=== PATIENT | male | born 1935 | race Caucasian/White ===

== ENCOUNTER 2016-07-07 05:16 | Inpatient (IN) | payer OTHER, BC ==
[2016-06-15 13:19] VITALS: BMI 24.0
--- NOTE | 2016-06-15 13:50 | PAT Medication Instructions ---
Service Date Jun 15, 2016. Current Home Medication List Acetaminophen Tab (Tylenol), 325 MG PO BID Amlodipine (Norvasc), 10 MG PO QAM Donepezil Hydrochloride (Donepezil Hcl), 1 TAB PO QAM Eye Drops (Eye Drops), 1 DROP OPB HS Gabapentin (Neurontin), 300 MG PO BID Gabapentin (Neurontin), 400 MG PO HS Glimepiride (Glimepiride), 1 TAB PO QID Hydrochlorothiazide (Hctz), 25 MG PO QAM Lisinopril (Zestril), 20 MG PO BID Metformin Hcl (Glucophage), 850 MG PO TID Multivitamin (Multivitamin), 1 TAB PO QPM Simvastatin (Zocor), 10 MG PO HS Sitagliptin Phosphate (Januvia), 100 MG PO QPM Medication Instructions For Your Scheduled Surgery - Hold the following medications 48 hours prior to surgery: Metformin Hcl (Glucophage), 850 MG PO TID - Hold the following medications the morning of surgery: Glimepiride (Glimepiride), 1 TAB PO QID Hydrochlorothiazide (Hctz), 25 MG PO QAM Lisinopril (Zestril), 20 MG PO BID Donepezil Hydrochloride (Donepezil Hcl), 1 TAB PO QAM - Take the following medications the morning of surgery with a sip of water: Gabapentin (Neurontin), 300 MG PO BID Acetaminophen Tab (Tylenol), 325 MG PO BID Amlodipine (Norvasc), 10 MG PO QAM - Hold the following medications as scheduled the night before surgery: Lisinopril (Zestril), 20 MG PO BID - Take the following medications as scheduled the night before surgery: Gabapentin (Neurontin), 400 MG PO HS Gabapentin (Neurontin), 300 MG PO BID Eye Drops (Eye Drops), 1 DROP OPB HS Simvastatin (Zocor), 10 MG PO HS Multivitamin (Multivitamin), 1 TAB PO QPM Acetaminophen Tab (Tylenol), 325 MG PO BID Sitagliptin Phosphate (Januvia), 100 MG PO QPM If you have any questions please call us at [phone] (Daniela Schulz PA-C) or [phone] or [phone]
[2016-06-15 14:48] LABS: URINE APPEARANCE CLEAR (CLEAR); URINE BILIRUBIN NEG (NEG); URINE COLOR YELLOW; URINE NITRITE NEG (NEG); URINE SPECIFIC GRAVITY 1.013 (1.000-1.030); UROBILINOGEN NEG (NEG); ZZUR CULT IF INDIC CLEAN CATCH NO
[2016-06-15 14:49] LABS: BASO % 0.5 %; BASO ABS # 0.04 K/uL (0-0.2); COMPLETE YES; EOS % 1.6 %; HEMATOCRIT 39.2 % (42-52); IG% 0.3 %; LYMPH % 20.5 %; LYMPH ABS # 1.58 K/uL (1.2-3.4); MEAN CELL VOLUME 90.1 fL (80-100); MEAN CORPUSCULAR HEMOGLOBIN 31.5 pg (25-34); MEAN CORPUSCULAR HGB CONC 34.9 g/dl (32-36); MEAN PLATELET VOLUME 10.4 fL (7.4-10.4); MONO % 6.9 %; NEUT % 70.2 %; PLATELET COUNT 174 K/uL (130-400); RED BLOOD COUNT 4.35 M/uL (4.7-6.1); WHITE BLOOD COUNT 7.69 K/uL (4.8-10.8)
[2016-06-15 14:50] LABS: MANUAL MICROSCOPIC REQUIRED? NO; REVIEW REQ? NO
[2016-06-15 15:03] LABS: ESTIMATED AVERAGE GLUCOSE 194 mg/dl; HA1C FLAG Normal (Normal)
[2016-06-15 15:16] LABS: BUN/CREATININE RATIO 14.2 (10-20); CALCIUM 10.3 mg/dl (8.5-10.1); CREATININE 1.2 mg/dl (0.60-1.40); POTASSIUM 4.6 mmol/L (3.5-5.1)
--- NOTE | 2016-07-06 19:20 | HISTORY & PHYSICAL EXAMINATION ---
DATE OF ADMISSION: 07/07/2016 CHIEF COMPLAINT: Chronic right shoulder pain. HISTORY OF PRESENT ILLNESS: This is a 81-year-old male patient of Dr. Bhatia complaining of chronic right shoulder pain, longstanding, now progressively getting worse. 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 The patient wished to proceed with a right total shoulder arthroplasty. PAST MEDICAL HISTORY: Hypertension, hypercholesterolemia, normal sinus bradycardia, carpal tunnel syndrome, diabetes mellitus, rheumatoid arthritis, spine problems, sciatica. SOCIAL HISTORY: Nonsmoker, nondrinker. PAST SURGICAL HISTORY: Right total hip, both carpal tunnel releases, and appendectomy. FAMILY HISTORY: Noncontributory. REVIEW OF SYSTEMS: The patient complains of chronic right shoulder pain. Otherwise, denies any shortness of breath, chest pain, nausea, vomiting or any other joint complaints. MEDICATIONS: Amlodipine 10 mg daily; simvastatin 10 mg daily; Januvia 100 mg daily; metformin 850 mg t.i.d.; lisinopril 20 mg b.i.d.; hydrochlorothiazide 25 mg daily; donepezil 5 mg daily; glimepiride 2 mg 1 tablet at breakfast, 1 tablet at lunch, 1 tablet at supper; latanoprost 0.005% eyedrops, instill 1 drop daily in both eyes; calcium 600 plus vitamin D daily. ALLERGIES: No known drug allergies. PHYSICAL EXAMINATION: GENERAL: Well-developed, well-nourished 81-year-old male in no acute distress. He is alert and oriented x3 and pleasant. HEENT: Normocephalic, atraumatic. Extraocular motions are intact. Pupils are equal and reactive to light. HEART: Regular rate and rhythm. No murmurs are appreciated. LUNGS: Clear. ABDOMEN: Soft, nontender, bowel sounds are present. EXTREMITIES: Right shoulder reveals full range of motion with crepitation and pain. He has 4/5 strength globally. NEUROLOGIC: Neurovascularly he is intact in his right upper extremity. DIAGNOSES: Right shoulder end-stage osteoarthritis with a history of hypertension, hypercholesterolemia, normal sinus bradycardia, carpal tunnel syndrome, diabetes mellitus, rheumatoid arthritis, spine problems, sciatica. PLAN: The patient was advised of his diagnosis. Indications, risks, benefits, and postop course have all been reviewed. The patient wishes to proceed with a right total shoulder arthroplasty. Necessary consent forms, preoperative testing and clearances will be obtained. LAURENCED
[~2016-07-07] VITALS: Ht 177.8 cm; Wt 74.0 kg
[2016-07-07] VITALS (7 sets, daily range): BP systolic 112–151; BP diastolic 50–78; PULSE 46–100; TEMP 36.3–36.8; O2SAT 97–100; Ht 177.8 cm; Wt 74.0 kg
[~2016-07-07 05:16] MED LIST: ACET325T96 PO; AMLO-114 PO; DONE1TAB11 PO; EYED OPB; GABA-113 PO; GABA1CAP5 PO; GLIM2TAB2 PO; HYDR25TA4 PO; LISI-725 PO; METF-383 PO; MULT-506 PO; SIMV10TA2 PO; SITA100T3 PO
[2016-07-07] MEDS ORDERED: CeleBREX 200 MG CAP PO SCH (06:00)
[2016-07-07] MEDS ORDERED: FAMOTIDINE 20 MG TAB PO SCH (06:00)
[2016-07-07] MEDS ORDERED: DEXAMETHASONE 4 MG TAB PO SCH (06:00)
[2016-07-07] MEDS ORDERED: METOCLOPRAMIDE HCL 10 MG TAB PO SCH (06:00)
[2016-07-07] MEDS ORDERED: ACETAMINOPHEN 500 MG TAB PO SCH (06:00)
[2016-07-07] MEDS ORDERED: LACTATED RINGER'S 1000ML 1,000 ML IV SCH (06:00)
[2016-07-07] MEDS ORDERED: GABAPENTIN 300 MG CAP PO SCH (06:00)
[2016-07-07] MEDS ORDERED: CEFAZOLIN 1000MG/55 ML D5W 55 ML IV SCH (06:00)
[2016-07-07] MEDS ORDERED: LACTATED RINGER'S 1000ML IV SCH (06:00)
[2016-07-07] MEDS ORDERED: BUPIVACAINE 0.5 % 5 MG/1 ML PF 10ML VIAL ONE (06:25)
[2016-07-07] MEDS ORDERED: MEPIVACAINE HCL 1.5% 30 ML VIAL ONE (06:26)
[2016-07-07] MEDS ORDERED: MIDAZOLAM HCL 1 MG/ML 2ML VIAL ONE (06:41)
[2016-07-07] MEDS ORDERED: FENTANYL CITRATE INJ 50 MCG/1 ML 2 ML VIAL ONE (06:41)
--- NOTE | 2016-07-07 07:16 | History & Physical Bridge Note ---
H&P Re-Evaluation Bridge Note: I have examined the patient, reviewed the History & Physical and in the interval since the performance of the History & Physical I have noted the following changes of clinical significance: No changes noted
[2016-07-07] MEDS ORDERED: ONDANSETRON INJ 2 MG/ML 2 ML VIAL ONE ×2 (08:05→10:09)
[2016-07-07] MEDS ORDERED: EpHEDrine SULFATE 50MG/5ML SYR ONE (08:05)
[2016-07-07] MEDS ORDERED: DEXAMETHASONE SOD INJ 4 MG/ML VIAL ONE (08:05)
[2016-07-07] MEDS ORDERED: PHENYLEPHRINE 100MCG/ML 5ML SYR ONE (08:05)
[2016-07-07] MEDS ORDERED: LIDOCAINE HCL 2% 2 ML VIAL (20MG/ML) ONE (08:05)
[2016-07-07] MEDS ORDERED: PHENYLEPHRINE HCL INJ 10 MG/ML VIAL ONE (08:05)
[2016-07-07] MEDS ORDERED: PROPOFOL IV EMULSION 10 MG/ML 20 ML VIAL IV ONE (08:05)
[2016-07-07] MEDS ORDERED: GLYCOPYRROLATE INJ 0.2 MG/ML VIAL ONE (08:05)
[2016-07-07] MEDS ORDERED: SUCCINYLCHOLINE 100MG/5ML SYR IV ONE (08:05)
[2016-07-07] MEDS ORDERED: NEOSTIGMINE METHYLSULFATE 5 MG/5 ML SYR ONE (08:05)
[2016-07-07] MEDS ORDERED: ROCURONIUM BROMIDE 10 MG/ML 5 ML VIAL ONE ×2 (08:06→08:35)
[2016-07-07] MEDS ORDERED: BACITRACIN 50000 UNIT VIAL IR ONE (09:50)
--- NOTE | 2016-07-07 10:17 | [facility] Operative Report ---
Operative Report Operative Date Jul 07, 2016. Pre-Operative Diagnosis Right Shoulder Degenerative Joint Disease Post-Operative Diagnosis same biceps tenosynovitis Procedure(s) Performed right total shoulder replacement and biceps tenodesis and debridement partial rotator cuff tear Surgeon Dr. Ishaan Wallace Gas Producer Surgeon(s) Luis Asif PA-C Estimated Blood Loss 50ml Findings as above bicipital groove spurs Specimens A.) Right Humeral Head Drains 2 HV Anesthesia GENERAL AND REGIONAL Complication(s) None Disposition Recovery Room / PACU Indications end stage djd I attest to the content of the Intraoperative Record and any orders documented therein. Any exceptions are noted below.
[2016-07-07] MEDS ORDERED: MoRPHine SULFATE 2 MG/ML CARP IV PRN ×3 (10:30→12:45)
[2016-07-07] MEDS ORDERED: NALOXONE HCL 0.4 MG/1 ML VIAL/CARP IV PRN (10:30)
[2016-07-07] MEDS ORDERED: ZOLPIDEM TARTRATE 5 MG TAB PO PRN (10:30)
[2016-07-07] MEDS ORDERED: MAGNESIUM HYDROXIDE SUSP 30 ML UDC PO PRN (10:30)
[2016-07-07] MEDS ORDERED: BISACODYL 10 MG SUPP PR PRN (10:30)
[2016-07-07] MEDS ORDERED: SOD PHOSPHATE/SOD BIPHOSPHATE ENEMA 132 ML BTL PR PRN (10:30)
[2016-07-07] MEDS ORDERED: ONDANSETRON INJ 2 MG/ML 2 ML VIAL IV PRN (10:30)
[2016-07-07] MEDS ORDERED: NovoLIN-R INSULIN PER UNIT CHARGE ONE (10:40)
[2016-07-07] MEDS ORDERED: INSULIN HUMAN REGULAR PER UNIT 15 UNITS in SYRINGE 0 ML IV STA (11:25)
[2016-07-07] MEDS ORDERED: EpHEDrine SULFATE INJ 50 MG/ML AMP IV PRN (11:30)
[2016-07-07] MEDS ORDERED: ATROPINE SULFATE 0.1 MG/ML 5ML SYR IV PRN (11:30)
--- NOTE | 2016-07-07 11:47 | Anesthesiology Progress Note ---
Anesthesia Post Op Note Date & Time Jul 07, 2016 at 11:47 Vital Signs Pain Intensity: 0 Vital Signs Past 12 Hours Date Time Temp Pulse Resp B/P Pulse Ox O2 Delivery O2 Flow Rate FiO2 07/07/16 11:30 77 14 113/55 99 Nasal Cannula 4 07/07/16 11:20 36.4 76 14 106/52 99 Nasal Cannula 4 07/07/16 11:10 76 14 111/56 100 Mask 5 07/07/16 11:00 75 14 113/54 100 Mask 5 07/07/16 10:50 75 14 133/57 100 Mask 10 07/07/16 10:40 70 14 129/62 100 Mask 10 07/07/16 10:30 69 14 128/61 99 Mask 10 07/07/16 10:28 36.2 74 12 128/64 100 Mask 10 07/07/16 05:53 36.5 52 18 151/70 99 Room Air Notes Mental Status: alert / awake / arousable, participated in evaluation Pt Amnestic to Procedure: Yes Nausea / Vomiting: adequately controlled Pain: adequately controlled Airway Patency, RR, SpO2: stable & adequate BP & HR: stable & adequate Hydration State: stable & adequate Anesthetic Complications: no major complications apparent
--- NOTE | 2016-07-07 11:51 | DIAGNOSTIC IMAGING REPORT ---
RIGHT SHOULDER MIN 2 VIEWS ROUTINE CLINICAL HISTORY: Post shoulder surgery Right COMPARISON STUDY: None. FINDINGS: The patient is status post a right shoulder arthroplasty. Hardware appears intact. Skin geronimo and surgical drains are in place. No fracture or dislocation. IMPRESSION: Status post right shoulder arthroplasty. No evidence for hardware complication. Electronically signed by: Torsten Hi M.D. 07/07/2016 11:49 AM Dictated Date/Time: 07/07/2016 11:48 AM
--- NOTE | 2016-07-07 12:26 | OPERATIVE REPORT ---
DATE OF OPERATION: 07/07/2016 INDICATION FOR PROCEDURE: The patient is a 81-year-old male with progressive osteoarthritis in his right shoulder. His radiographs demonstrate [id number] in the glenohumeral joint. He also has some mild to moderate AC joint arthritis but asymptomatic in that area. His MRI demonstrates some rotator cuff tendinopathy, but essentially intact rotator cuff with no evidence of any full thickness rotator cuff tear. PREOPERATIVE DIAGNOSIS: End-stage osteoarthritis right shoulder, rotator cuff tendinopathy. POSTOPERATIVE DIAGNOSIS: Same with partial tear and calcification anterior rotator cuff with biceps tenosynovitis chronic, bicipital groove bone spurs. PROCEDURE: Right shoulder total shoulder replacement with biceps tenodesis. SURGEON: Dr. Wallace. MANAGER UNDERWRITING: Luis Asif PA-C. ANESTHESIA: Regional block general. OPERATION AND FINDINGS: OPERATIVE PROCEDURE: The patient was taken to the operating room, anesthetized regional block and general anesthetic. He was positioned on the operating room table in a 30 degree beach chair position with a towel roll on the medial border of his right scapula. He was translated to the right side of the bed so his shoulder could be manipulated off the bed as necessary. His head was placed on a foam headrest. She had protective eyewear placed. Templeton catheter placed. He had TEDs and SCDs placed. His right shoulder was sterilely prepped and draped with ChloraPrep. Exam under anesthesia demonstrated he had about 140 degrees of forward elevation, 90 degrees of abduction and external rotation to 35 degrees to 40 degrees only. Clearly had [id number] crepitation in the glenohumeral joint. An anterior deltopectoral approach was performed. A longitudinal incision was made in the deltopectoral interval. Skin was incised through a thin layer of fat. Subcutaneous bleeders were cauterized. The cephalic vein was dissected out and retracted laterally with the deltoid. Deltopectoral interval was divided down to the conjoined tendon. The upper centimeter of the pectoralis was released for inferior exposure. The biceps tendon sheath opened up and he had chronic tenosynovitis there and bicipital groove bone spurs. The biceps was tenodesed to the pectoralis using interrupted [id number] #2 Fiberwire sutures and released proximally. The clavipectoral fascia was divided at the lateral margin of the strap muscles and extended up to the CA ligament which was preserved. The bursa of the rotator cuff was resected. He had a thin bursitis. No major chronic thickened bursitis was identified. The rotator cuff outer surface was completely intact. The circumflex vessels were tied off with silk ties and divided laterally. The muscle fibers of the subscapularis was split at its inferior edge just at the level of the circumflex vessels leaving a small cuff of tissue to protect the axillary nerve. A Kitner elevator was used to reflect these muscle fibers off the inferior capsule and a blunt Hohmann retractor was placed to protect the underlying axillary nerve which was palpated with a tug test. The rotator interval was opened up and then the subscapularis tendon was taken down with an incision perpendicular to the fibers leaving about a cm of the tendon attached to the lesser tuberosity. A traction suture was placed into the subscapularis and capsular tissue. Then the capsule was released under direct visualization down to the glenoid, released off the anterior glenoid and the superior capsule released down to the glenoid, so we had a 360 degree release of the subscapularis. The Bankart retractor was placed anteriorly. The Fukuda retractor was placed into the joint to expose the intraarticular findings which demonstrated [id number] with some relatively more posterior wear of the glenoid with removal of articular cartilage still present in about the anterior third of the joint, but with exposed bone at the posterior two-thirds. There was no major eccentric erosion noted more minor. There was a fairly large subchondral cyst in the anterior mid glenoid. The glenoid labrum had degenerative changes and the labrum was resected circumferentially on the rim of the biceps tendon was resected superiorly. Then the anterior inferior, posterior inferior capsule was released with electrocautery on bone, axillary nerve protected inferiorly with retractor and a Matt elevator was used to help free up some of the capsule off the glenoid. At this point, the humerus was dislocated with extension and external rotation. I did remove the small to moderate inferior humeral osteophytes. The humeral head was exposed with extension and external rotation of retractors and the cut was made with freehand cut technique to match the patient's normal version. We did identify when we were taking down the subscapularis tendon some calcifications in the upper edge of the subscapularis rotator interval area. These calcifications were debrided from the tendon tissue. There was also some undersurface tearing of the supraspinatus that was debrided with a rongeur back to intact fibers which was more easily identified after the humeral head cut was made. There was no evidence of any high grade full thickness tear and we felt that we could do a standard shoulder replacement. The humerus was then retracted posterior to the glenoid and the drill hole was made into the central glenoid for the reamer which was subsequently used. We slightly reamed eccentrically anteriorly to make eversion anatomic and then sized this for 48 mm glenoid and then went ahead and drilled a central hole for the peg guide, drilled the 3 peg holes, irrigated this copiously. We packed the drill holes with epinephrine soaked tampons and sponge and then went ahead and vacuum mixed the Palacos G cement. Then the 48 Affinity glenoid from the [employer]ornier system was used. The Affinity CortiLoc peg glenoid size 48 was then cemented with the peripheral peg cemented and the central peg pressfit. The implant held in position until the cement cured and then we went ahead to prepare the humerus which was repaired with a starter awl followed by sequential broaches up to a size 4, which had the best fit and fill and then broached up to a size 4 as well. That was an A angle and then we went ahead with the high offset 48 mm humeral head and reduced this to the glenoid. There was complete stability with an inferior shuck, posterior shuck, external rotation and soft tissue tension on subscapularis was good. Trials were removed. The final components were assembled for the 4A standard Aequalis Ascend Flex stem assembled to the Flex shoulder system Aequalis humeral head, which was the 48 x 18 mm high offset head. Then 3 drill holes were made through the hard bone in the bicipital groove, 3 transosseous #5 FiberWire sutures were passed around the lesser tuberosity and then after irrigation copiously with antibiotic solution and bacitracin the humeral implant was impacted into position, reduced to the glenoid and then the subscapularis was repaired with the #5 FiberWire sutures previously placed with Miguel Ángel-Ranjith suture technique and then the lateral row soft tissue fixation performed with [id number] #2 FiberWire. Rotator interval was closed maximal rotation with the #2 FiberWire. The pectoralis was repaired with [id number] #2 FiberWire reinforcing the tenodesis. The range of motion was assessed and patient had about 45-50 degrees of external rotation, 90 degrees of abduction and 150 degrees of forward elevation without any tension on the repair. The wound was irrigated. Two drains were placed. The deltopectoral interval was closed with [id number]-vi-[id number] #1 Vicryl sutures, subcutaneous tissue closed with interrupted 2-0 Polysorb. Skin closed with geronimo. Sterile dressings were applied and the patient tolerated the procedure well. Luis Asif PA-C was my facilities assistant. He functioned as facilities assistant for the entire procedure. He assisted in patient positioning, assisted in soft tissue retraction, instrument management during the procedure and he performed the subcutaneous skin closure and will participate in postoperative care of the patient. I attest to the content of the Intraoperative Record and any orders documented therein. Any exceptio ns are noted below.
--- NOTE | 2016-07-07 12:42 | Medical Consult ---
Consultation Date of Consultation: Jul 07, 2016. Attending Physician: Ishaan Wallace M.D. Reason for Consultation: Medical management History of Present Illness Patient is a pleasant 81 y/o male, with PMHx of HTN, hypercholesterolemia, bradycardia, and DM, s/p total right shoulder arthroplasty by Dr. Wallace on 07/07. Patient states he is feeling well. Pain is currently a 3/10. Just arrived to room prior to my arrival. Per , surgery went well. Patient denies any nausea or vomiting. Has not ate yet since surgery. No BM/passing gas postop. Patient denies any fever, chills, sweats, lightheadedness, dizziness, vision changes, CP, palpitations, edema, SOB, wheezing, cough, abdominal pain, nausea, vomiting, diarrhea, urinary symptoms, melena, weakness, anxiety/depression, active bleeding, or new skin discoloration/changes. Past Medical/Surgical History 1. HTN 2. Hypercholesterolemia 3. Bradycardia 4. DM 5. Neuropathy 6. Mild cognitive disorder Family History Father- [place] in late 50's Brother- Cardiac issues Sister- Cancer Social History Smoking Status: Never Smoker Marital Status: Housing Status: lives with family Occupation Status: employed Allergies Coded Allergies: No Known Allergies (Unverified , 07/07/16) Home Medications Reported Home Medications Medications Dose Route/Sig Max Daily Dose Days Date Category Dose Instructions Eye Drops (Miscellaneous) Drp 1 Drop OPB HS 06/15/16 Reported PT NOT SURE OF NAME Neurontin (Gabapentin) 400 Mg Cap 400 Mg PO HS 06/15/16 Reported Tylenol (Acetaminophen) 325 Mg Tab 325 Mg PO BID 06/15/16 Reported Zocor (Simvastatin) 10 Mg Tab 10 Mg PO HS 06/15/16 Reported Glucophage (Metformin Hcl) 850 Mg Tab 850 Mg PO TID 06/15/16 Reported Zestril (Lisinopril) 20 Mg Tab 20 Mg PO BID 06/15/16 Reported Januvia (Sitagliptin Phosphate) 100 Mg Tab 100 Mg PO QPM 06/15/16 Reported Hctz (Hydrochlorothiazide) 25 Mg Tab 25 Mg PO QAM 06/15/16 Reported Glimepiride 2 Mg Tab 1 Tab PO QID 90 06/15/16 Reported Neurontin (Gabapentin) 300 Mg Cap 300 Mg PO BID 06/15/16 Reported Donepezil Hcl (Donepezil Hydrochloride) 5 Mg Tab 1 Tab PO QAM 90 06/15/16 Reported Multivitamin (Multivitamins) Tab 1 Tab PO QPM 06/15/16 Reported Norvasc (Amlodipine Besylate) 10 Mg Tab 10 Mg PO QAM 06/15/16 Reported Current Inpatient Medications Current Inpatient Medications Medications (Trade) Dose Ordered Sig/Patricio Route Start Time Stop Time Status Last Admin Dose Admin Lactated Ringer's 1,000 ml @ 60 mls/hr [id number] IV 07/07/16 06:00 07/07/16 22:39 Cefazolin Sodium (Ancef 1000mg/55 ml D5W) 55 ml @ 100 mls/hr PREOP IV 07/07/16 06:00 07/07/16 18:00 07/07/16 07:27 100 MLS/HR Acetaminophen (Tylenol Tab) 1,000 mg PREOP PO 07/07/16 06:00 07/07/16 18:00 07/07/16 05:50 1,000 MG Celecoxib (CeleBREX CAP) 200 mg PREOP PO 07/07/16 06:00 07/07/16 18:00 07/07/16 05:50 200 MG Dexamethasone (Decadron Tab) 8 mg PREOP PO 07/07/16 06:00 07/07/16 18:00 07/07/16 05:49 8 MG Famotidine (Pepcid Tab) 20 mg PREOP PO 07/07/16 06:00 07/07/16 18:00 07/07/16 05:48 20 MG Gabapentin (Neurontin Cap) 300 mg PREOP PO 07/07/16 06:00 07/07/16 18:00 Metoclopramide HCl 10 mg 10 mg PREOP PO 07/07/16 06:00 07/07/16 18:00 07/07/16 05:49 10 MG Lactated Ringer's (Lr 1000ml) 1,000 ml @ 15 mls/hr Q24H IV 07/07/16 06:00 07/08/16 05:59 Amlodipine Besylate (Norvasc Tab) 10 mg QAM PO 07/08/16 09:00 08/07/16 08:59 Donepezil HCl (Aricept Tab) 5 mg QAM PO 07/08/16 09:00 08/07/16 08:59 Gabapentin (Neurontin Cap) 300 mg BID PO 07/07/16 21:00 08/06/16 20:59 Gabapentin (Neurontin Cap) 400 mg HS PO 07/07/16 21:00 08/06/16 20:59 Hydrochlorothiazide (Hydrochlorothiazide Tab) 25 mg QAM PO 07/08/16 09:00 08/07/16 08:59 Lisinopril (Zestril Tab) 20 mg BID PO 07/07/16 21:00 08/06/16 20:59 Simvastatin (Zocor Tab) 10 mg HS PO 07/07/16 21:00 08/06/16 20:59 Non-Formulary Medication (Eye Drops ) 1 drop HS OPB 07/07/16 21:00 08/06/16 20:59 UNV Diphenhydramine HCl (Benadryl Cap) 25 mg Q8 PRN PO 07/07/16 10:30 08/06/16 10:29 Zolpidem Tartrate (Ambien Tab) 5 mg HSZ PRN PO 07/07/16 10:30 08/06/16 10:29 Ondansetron HCl (Zofran Inj) 4 mg Q6H PRN IV 07/07/16 10:30 08/06/16 10:29 Pantoprazole Sodium 40 mg 40 mg QAM PO 07/08/16 09:00 08/07/16 08:59 Potassium Chloride/Sodium Chloride (KCl Inj/Nss 1000ml) 1,005 ml @ 100 mls/hr Q10H3M IV 07/07/16 13:00 07/08/16 11:00 Oxycodone HCl (Roxicodone Immediate Rel Tab) `1-2 TABS FOR PAIN `1 TAB... Q4H PRN PO 07/07/16 10:30 07/21/16 10:29 Oxycodone HCl (Oxycontin Tab) 10 mg Q12 PO 07/07/16 21:00 07/21/16 20:59 Acetaminophen (Tylenol Tab) 1,000 mg Q8 PO 07/07/16 14:00 08/06/16 13:59 Morphine Sulfate (MoRPHine SULFATE INJ) as above Q2H PRN IV 07/07/16 10:30 07/21/16 10:29 UNV Naloxone HCl (Narcan Inj) 0.1 mg Q2M PRN IV 07/07/16 10:30 08/06/16 10:29 UNV Magnesium Hydroxide (Milk Of Magnesia Susp) 30 ml Q6H PRN PO 07/07/16 10:30 08/06/16 10:29 Bisacodyl (Dulcolax Supp) 10 mg DAILY PRN CA 07/07/16 10:30 08/06/16 10:29 Sodium Biphosphate/ Sodium Phosphate (Fleet Enema) 132 ml DAILY PRN CA 07/07/16 10:30 08/06/16 10:29 Multivitamins 1 tab 1 tab DAILY PO 07/08/16 09:00 08/07/16 08:59 Cefazolin Sodium/ Dextrose (Ancef Iv/D5 50ml) 55 ml @ 100 mls/hr Q8H IV 07/07/16 10:30 07/07/16 19:02 UNV Insulin Aspart (novoLOG ASPART) SLIDING SCALE G... ACHS SC 07/07/16 17:15 08/06/16 17:14 Ephedrine Sulfate (EpHEDrine SULFATE INJ) 5 mg Q5M PRN IV 07/07/16 11:30 07/07/16 16:30 Atropine Sulfate (Atropine Sulfate 0.1MG/Ml Inj) 0.5 mg Q1M PRN IV 07/07/16 11:30 07/07/16 16:30 Physical Exam Date Time Temp Pulse Resp B/P Pulse Ox O2 Delivery O2 Flow Rate FiO2 07/07/16 12:27 36.8 63 17 112/63 100 Nasal Cannula 3.0 07/07/16 11:53 72 14 101/54 100 Nasal Cannula 4 07/07/16 11:45 72 14 99/52 100 Nasal Cannula 4 07/07/16 11:30 77 14 113/55 99 Nasal Cannula 4 07/07/16 11:20 36.4 76 14 106/52 99 Nasal Cannula 4 07/07/16 11:10 76 14 111/56 100 Mask 5 07/07/16 11:00 75 14 113/54 100 Mask 5 07/07/16 10:50 75 14 133/57 100 Mask 10 07/07/16 10:40 70 14 129/62 100 Mask 10 07/07/16 10:30 69 14 128/61 99 Mask 10 07/07/16 10:28 36.2 74 12 128/64 100 Mask 10 07/07/16 05:53 36.5 52 18 151/70 99 Room Air General Appearance: WD/WN, no apparent distress Head: normocephalic, atraumatic Eyes: normal inspection, PERRL ENT: hearing grossly normal Neck: supple Respiratory/Chest: lungs clear, no respiratory distress, no accessory muscle use Cardiovascular: regular rate, rhythm, normal peripheral pulses Abdomen/GI: normal bowel sounds, non tender, soft Extremities/Musculoskelatal: no pedal edema, + pertinent finding (SCDs/TEDs on. Right shoulder- brace on with clean dressing. ) Neurologic/Psych: alert, normal mood/affect, oriented x 3 Skin: normal color, warm/dry, no rash Laboratory Results Last 24 Hours Test 07/07/16 05:31 07/07/16 10:34 07/07/16 10:58 07/07/16 11:17 Bedside Glucose 135 mg/dl 267 mg/dl 272 mg/dl 226 mg/dl Assessment & Plan 81 y/o male, with PMHx of HTN, hypercholesterolemia, bradycardia, and DM, s/p total right shoulder arthroplasty by Dr. Wallace on 07/07. - DVT prophylaxis, pain management, and PT/OT as per primary team - Follow CBC and BMP HTN: - Hold Lisinopril 20 mg PO BID and HCTZ 25 mg PO QAM- check AM labs for kidney function postop prior to restarting - Continue Amlodopine 10 mg PO daily - Add Hydralazine 10 mg IV PRN for SBP >170 or DBP >100 DM: - Hold Metformin, Januvia, and Glimepiride - BSG ACHS with sliding insulin scale - No orders for IV steroids, monitor need for Lantus coverage Neuropathy: - Continue Gabapentin Hypercholesterolemia: - Continue Zocor 10 mg PO daily Mild cognitive disorder: - Continue Aricept DVT prophylaxis: - As per primary team Code Status: - LEVEL I, FULL Dispo: - Discharge as per primary team. Thank you for this consultation. We will continue to follow throughout hospital stay.
[2016-07-07] MEDS: POTASSIUM CHLORIDE INJ 10 MEQ in SODIUM CHLORIDE 0.9% 1000ML 1,000 ML IV SCH ×2 (12:44→23:52)
[2016-07-07] MEDS ORDERED: DEXTROSE 50% 50 ML SYR IV PRN (12:45)
[2016-07-07] MEDS ORDERED: HydrALAZINE HCL 20 MG/ML VIAL IV. PRN (12:45)
[2016-07-07] MEDS ORDERED: MoRPHine SULFATE 4 MG/ML 1 ML CARP\\VIAL IV PRN (12:45)
[2016-07-07] MEDS ORDERED: GLUCAGON FOR INJ 1 MG VIAL SQ PRN (12:45)
[2016-07-07] MEDS ORDERED: GLUCOSE 10 TABS/TUBE PO PRN (12:45)
[2016-07-07] MEDS ORDERED: GLUCOSE 40% GEL 15 GM TUBE PO PRN (12:45)
[2016-07-07] MEDS ORDERED: [UNRECOGNIZED DRUG - OTHER] SCH (14:00)
[2016-07-07] MEDS: CEFAZOLIN IV 1,000 MG in DEXTROSE 5% 50ML 50 ML IV SCH ×2 (14:27→21:32)
[2016-07-07] MEDS: ACETAMINOPHEN 500 MG TAB PO SCH ×2 (14:28→21:32)
[2016-07-07] MEDS ORDERED: NURSING VERBAL MED ORDER ONE (14:30)
[2016-07-07] MEDS ORDERED: LATA0.5S OP (14:37)
[2016-07-07] MEDS: INSULIN ASPART 100 UNITS/ML 3 ML PEN SC SCH ×2 (18:20→21:37)
[2016-07-07] MEDS ORDERED: LISINOPRIL 20 MG TAB PO SCH (21:00)
[2016-07-07] MEDS: OXYCODONE HCL 10 MG TABCR (OXYCONTIN) PO SCH (21:29)
[2016-07-07] MEDS: LATANOPROST 0.005% OP SOLN 2.5 ML BTL OP SCH (21:30)
[2016-07-07] MEDS: GABAPENTIN 300 MG CAP PO SCH (21:31)
[2016-07-07] MEDS: GABAPENTIN 400 MG CAP PO SCH (21:31)
[2016-07-07] MEDS: SIMVASTATIN 10 MG TAB PO SCH (21:31)
[2016-07-08] VITALS (7 sets, daily range): BP systolic 127–183; BP diastolic 50–68; PULSE 42–62; TEMP 36.4–36.9; O2SAT 94–100
[2016-07-08] MEDS: OXYCODONE HCL IR 5 MG TAB (IMMEDIATE RELEASE) PO PRN ×2 (03:02→15:50)
[2016-07-08] MEDS: ACETAMINOPHEN 500 MG TAB PO SCH ×3 (05:36→21:39)
[2016-07-08 06:52] LABS: HEMATOCRIT 32.4 % (42-52); MEAN CELL VOLUME 89.3 fL (80-100); MEAN CORPUSCULAR HEMOGLOBIN 30.9 pg (25-34); MEAN CORPUSCULAR HGB CONC 34.6 g/dl (32-36); PLATELET COUNT 170 K/uL (130-400); RED BLOOD COUNT 3.63 M/uL (4.7-6.1); WHITE BLOOD COUNT 14.46 K/uL (4.8-10.8)
[2016-07-08 07:22] LABS: BUN/CREATININE RATIO 15.3 (10-20); CALCIUM 9.4 mg/dl (8.5-10.1); CREATININE 1.6 mg/dl (0.60-1.40); POTASSIUM 4.8 mmol/L (3.5-5.1)
--- NOTE | 2016-07-08 07:32 | Hospitalist Progress Note ---
Hospitalist Progress Note Date of Service Jul 08, 2016. Subjective Pt evaluation today including: conversation w/ patient, physical exam, chart review, lab review, review of inpatient medication list Voiding: no voiding problems, no incontinence Patient states he is feeling well. His pain is well controlled. He is eating and drinking OK. Denies any passing gas/BM postop. Patient denies any fever, chills, sweats, lightheadedness, dizziness, vision changes, CP, palpitations, edema, SOB, wheezing, cough, abdominal pain, nausea, vomiting, diarrhea, urinary symptoms, melena, numbness/tingling, weakness, anxiety/depression, active bleeding, or new skin discoloration/changes. Medications Current Inpatient Medications Medications (Trade) Dose Ordered Sig/Patricio Route Start Time Stop Time Status Last Admin Dose Admin Amlodipine Besylate (Norvasc Tab) 10 mg QAM PO 07/08/16 09:00 08/07/16 08:59 07/08/16 08:09 10 MG Donepezil HCl (Aricept Tab) 5 mg QAM PO 07/08/16 09:00 08/07/16 08:59 07/08/16 08:09 5 MG Gabapentin (Neurontin Cap) 300 mg BID PO 07/07/16 21:00 08/06/16 20:59 07/08/16 08:09 300 MG Gabapentin (Neurontin Cap) 400 mg HS PO 07/07/16 21:00 08/06/16 20:59 07/07/16 21:31 400 MG Simvastatin (Zocor Tab) 10 mg HS PO 07/07/16 21:00 08/06/16 20:59 07/07/16 21:31 10 MG Diphenhydramine HCl (Benadryl Cap) 25 mg Q8 PRN PO 07/07/16 10:30 08/06/16 10:29 Zolpidem Tartrate (Ambien Tab) 5 mg HSZ PRN PO 07/07/16 10:30 08/06/16 10:29 Ondansetron HCl (Zofran Inj) 4 mg Q6H PRN IV 07/07/16 10:30 08/06/16 10:29 Pantoprazole Sodium (Protonix Tab) 40 mg QAM PO 07/08/16 09:00 08/07/16 08:59 07/08/16 08:09 40 MG Oxycodone HCl (Roxicodone Immediate Rel Tab) `1-2 TABS FOR PAIN `1 TAB... Q4H PRN PO 07/07/16 10:30 07/21/16 10:29 07/08/16 03:02 5 MG Oxycodone HCl (Oxycontin Tab) 10 mg Q12 PO 07/07/16 21:00 07/21/16 20:59 07/08/16 08:08 10 MG Acetaminophen (Tylenol Tab) 1,000 mg Q8 PO 07/07/16 14:00 08/06/16 13:59 07/08/16 05:36 1,000 MG Naloxone HCl (Narcan Inj) 0.1 mg Q2M PRN IV 07/07/16 10:30 08/06/16 10:29 Magnesium Hydroxide (Milk Of Magnesia Susp) 30 ml Q6H PRN PO 07/07/16 10:30 08/06/16 10:29 Bisacodyl (Dulcolax Supp) 10 mg DAILY PRN MD 07/07/16 10:30 08/06/16 10:29 Sodium Biphosphate/ Sodium Phosphate (Fleet Enema) 132 ml DAILY PRN MD 07/07/16 10:30 08/06/16 10:29 Multivitamins (Multivitamin Tab) 1 tab DAILY PO 07/08/16 09:00 08/07/16 08:59 07/08/16 08:10 1 TAB Insulin Aspart (novoLOG ASPART) SLIDING SCALE G... ACHS SC 07/07/16 17:15 08/06/16 17:14 07/08/16 08:49 10 UNITS Morphine Sulfate (MoRPHine SULFATE INJ) 2 mg Q2H PRN IV 07/07/16 12:45 07/21/16 12:44 Morphine Sulfate (MoRPHine SULFATE INJ) 4 mg Q2H PRN IV 07/07/16 12:45 07/21/16 12:44 Glucose (Glucose 40% Gel) 15-30 GRAMS 15 GRAMS... UD PRN PO 07/07/16 12:45 08/06/16 12:44 Glucose (Glucose Chew Tab) 4-8 Tablets 4 Tabl... UD PRN PO 07/07/16 12:45 08/06/16 12:44 Dextrose (Dextrose 50% 50ML Syringe) 25-50ML OF 50% DW IV FOR... UD PRN IV 07/07/16 12:45 08/06/16 12:44 Glucagon (Glucagon Inj) 1 mg UD PRN SQ 07/07/16 12:45 08/06/16 12:44 Hydralazine HCl (HydrALAZINE INJ) 10 mg Q6 PRN IV. 07/07/16 12:45 08/06/16 12:44 Latanoprost 1 drops 1 drops HS OP 07/07/16 21:00 08/06/16 20:59 07/07/16 21:30 1 DROPS Sodium Chloride (Nss 1000ml) 1,000 ml @ 125 mls/hr Q8H IV 07/08/16 07:30 08/07/16 07:29 07/08/16 08:10 125 MLS/HR Objective Vital Signs Date Time Temp Pulse Resp B/P Pulse Ox O2 Delivery O2 Flow Rate FiO2 07/08/16 02:55 36.5 51 17 131/61 99 Room Air 07/07/16 23:50 Room Air 07/07/16 23:13 36.4 46 17 119/50 100 Room Air 07/07/16 19:45 Room Air 07/07/16 15:11 36.4 59 17 142/62 100 Nasal Cannula 3.0 07/07/16 14:15 36.3 59 17 131/70 100 Nasal Cannula 3.0 07/07/16 13:05 36.7 100 17 147/78 100 Nasal Cannula 3.0 07/07/16 12:45 Room Air 07/07/16 12:27 36.8 63 17 112/63 100 Nasal Cannula 3.0 07/07/16 12:00 97 Nasal Cannula 3.0 07/07/16 11:53 72 14 101/54 100 Nasal Cannula 4 07/07/16 11:45 72 14 99/52 100 Nasal Cannula 4 07/07/16 11:30 77 14 113/55 99 Nasal Cannula 4 07/07/16 11:20 36.4 76 14 106/52 99 Nasal Cannula 4 07/07/16 11:10 76 14 111/56 100 Mask 5 07/07/16 11:00 75 14 113/54 100 Mask 5 07/07/16 10:50 75 14 133/57 100 Mask 10 07/07/16 10:40 70 14 129/62 100 Mask 10 07/07/16 10:30 69 14 128/61 99 Mask 10 07/07/16 10:28 36.2 74 12 128/64 100 Mask 10 Physical Exam General Appearance: no apparent distress, + pertinent finding (Shoulder brace on ) Eyes: normal inspection, PERRL ENT: hearing grossly normal Neck: supple Respiratory/Chest: lungs clear, no respiratory distress, no accessory muscle use Cardiovascular: regular rate, rhythm Abdomen: normal bowel sounds, non tender, soft Extremities: non-tender, no pedal edema, no calf tenderness Neurologic/Psychiatric: alert, normal mood/affect, oriented x 3 Skin: normal color, warm/dry, no rash Laboratory Results Last 24 Hours Test 07/07/16 10:34 07/07/16 10:58 07/07/16 11:17 07/07/16 17:29 Bedside Glucose 267 mg/dl 272 mg/dl 226 mg/dl 269 mg/dl Test 07/07/16 20:47 07/08/16 05:38 Bedside Glucose 296 mg/dl White Blood Count 14.46 K/uL Red Blood Count 3.63 M/uL Hemoglobin 11.2 g/dL Hematocrit 32.4 % Mean Corpuscular Volume 89.3 fL Mean Corpuscular Hemoglobin 30.9 pg Mean Corpuscular Hemoglobin Concent 34.6 g/dl RDW Standard Deviation 43.0 fL RDW Coefficient of Variation 13.2 % Platelet Count 170 K/uL Mean Platelet Volume 11.0 fL Sodium Level 135 mmol/L Potassium Level 4.8 mmol/L Chloride Level 102 mmol/L Carbon Dioxide Level 21 mmol/L Anion Gap 12.0 mmol/L Blood Urea Nitrogen 25 mg/dl Creatinine 1.60 mg/dl Est Creatinine Clear Calc Drug Dose 38.7 ml/min Estimated GFR () 46.8 Estimated GFR (Non- 40.4 BUN/Creatinine Ratio 15.3 Random Glucose 242 mg/dl Calcium Level 9.4 mg/dl Assessment and Plan 81 y/o male, with PMHx of HTN, hypercholesterolemia, bradycardia, and DM, s/p total right shoulder arthroplasty by Dr. Wallace on 07/07. - DVT prophylaxis, pain management, and PT/OT as per primary team - Follow CBC and BMP -- Leukocytosis, likely secondary to postop response/Decedron pretreatment preop. Continue to monitor, follow for s/s of infection. -- Hyponatremia/acute kidney injury- treat with IV NSS @ 125 ml/hr. BUN/Cr= 25/1.60. Baseline Cr. ~1.2. Continue to follow. HTN: - Hold Lisinopril 20 mg PO BID and HCTZ 25 mg PO QAM - Continue Amlodipine 10 mg PO daily - Add Hydralazine 10 mg IV PRN for SBP >170 or DBP >100 DM: - Hold Metformin, Januvia, and Glimepiride - BSG ACHS with sliding insulin scale - No orders for IV steroids, monitor need for Lantus coverage Neuropathy: - Continue Gabapentin Hypercholesterolemia: - Continue Zocor 10 mg PO daily Mild cognitive disorder: - Continue Aricept DVT prophylaxis: - As per primary team Code Status: - LEVEL I, FULL Dispo: - Discharge as per primary team. Thank you for this consultation. We will continue to follow throughout hospital stay.
[2016-07-08] MEDS: OXYCODONE HCL 10 MG TABCR (OXYCONTIN) PO SCH ×2 (08:08→21:11)
[2016-07-08] MEDS: AMLODIPINE BESYLATE 5 MG TAB PO SCH (08:09)
[2016-07-08] MEDS: PANTOprazole SOD 40 MG TAB PO SCH (08:09)
[2016-07-08] MEDS: DONEPEZIL HCL 5 MG TAB PO SCH (08:09)
[2016-07-08] MEDS: GABAPENTIN 300 MG CAP PO SCH ×2 (08:09→21:10)
[2016-07-08] MEDS: MULTIVITAMIN TAB PO SCH (08:10)
[2016-07-08] MEDS: SODIUM CHLORIDE 0.9% 1000ML 1,000 ML IV SCH ×2 (08:10→15:44)
[2016-07-08] MEDS: INSULIN ASPART 100 UNITS/ML 3 ML PEN SC SCH ×4 (08:49→21:13)
--- NOTE | 2016-07-08 08:52 | Orthopedic Progress Note ---
Orthopedic Progress Note Date of Service Jul 08, 2016. Subjective Post OP Day: 1 Reports: feeling well, pain controlled w PO medications, Denies: SOB, calf pain , chest pain, complaints, light headedness, nausea / vomiting Additional Notes: HR in 40's- low 50's, this is baseline. Objective calves soft nontender, N/V intact, capillary refill less than 2 sec., dressing C /D/I, A&O x3, toes mobile Date Time Temp Pulse Resp B/P Pulse Ox O2 Delivery O2 Flow Rate FiO2 07/08/16 08:37 45 148/65 07/08/16 07:30 36.9 50 16 183/50 98 Room Air 07/08/16 02:55 36.5 51 17 131/61 99 Room Air 07/07/16 23:50 Room Air 07/07/16 23:13 36.4 46 17 119/50 100 Room Air 07/07/16 19:45 Room Air 07/07/16 15:11 36.4 59 17 142/62 100 Nasal Cannula 3.0 07/07/16 14:15 36.3 59 17 131/70 100 Nasal Cannula 3.0 07/07/16 13:05 36.7 100 17 147/78 100 Nasal Cannula 3.0 07/07/16 12:45 Room Air 07/07/16 12:27 36.8 63 17 112/63 100 Nasal Cannula 3.0 07/07/16 12:00 97 Nasal Cannula 3.0 07/07/16 11:53 72 14 101/54 100 Nasal Cannula 4 07/07/16 11:45 72 14 99/52 100 Nasal Cannula 4 07/07/16 11:30 77 14 113/55 99 Nasal Cannula 4 07/07/16 11:20 36.4 76 14 106/52 99 Nasal Cannula 4 07/07/16 11:10 76 14 111/56 100 Mask 5 07/07/16 11:00 75 14 113/54 100 Mask 5 07/07/16 10:50 75 14 133/57 100 Mask 10 07/07/16 10:40 70 14 129/62 100 Mask 10 07/07/16 10:30 69 14 128/61 99 Mask 10 07/07/16 10:28 36.2 74 12 128/64 100 Mask 10 Laboratory Results 24 Hours: Test 07/08/16 05:38 Hematocrit 32.4 % Hemoglobin 11.2 g/dL Assessment & Plan Assessment: POD #1, Right shoulder TSA, biceps tenodesis. Plan: PT/ OT D/C planning- Home w OPPT As per medicine. Inhouse Planning Pain Management: Oxycontin, Morphine, PO Tylenol, Oxy IR DVT Prophylaxis: TEDs, SCDs Discharge Planning Discharge Planning: home with oppt Pain Management: Oxycontin, Morphine, PO Tylenol, Oxy IR DVT Prophylaxis: TEDs, SCDs Therapy: Physical Therapy, Occupational Therapy
[2016-07-08] MEDS ORDERED: HYDROCHLOROTHIAZIDE 25 MG TAB PO SCH (09:00)
--- NOTE | 2016-07-08 09:55 | Anesthesiology Progress Note ---
Anesthesia Post Op Note Date & Time Jul 08, 2016 at 09:54 Vital Signs Pain Intensity: 3.0 Vital Signs Past 12 Hours Date Time Temp Pulse Resp B/P Pulse Ox O2 Delivery O2 Flow Rate FiO2 07/08/16 08:37 45 148/65 07/08/16 07:30 36.9 50 16 183/50 98 Room Air 07/08/16 07:25 Room Air 07/08/16 02:55 36.5 51 17 131/61 99 Room Air 07/07/16 23:50 Room Air 07/07/16 23:13 36.4 46 17 119/50 100 Room Air Notes Mental Status: alert / awake / arousable, participated in evaluation Pt Amnestic to Procedure: Yes Nausea / Vomiting: adequately controlled Pain: adequately controlled Airway Patency, RR, SpO2: stable & adequate BP & HR: stable & adequate Hydration State: stable & adequate Anesthetic Complications: no major complications apparent
[2016-07-08] MEDS: SIMVASTATIN 10 MG TAB PO SCH (21:10)
[2016-07-08] MEDS: GABAPENTIN 400 MG CAP PO SCH (21:10)
[2016-07-08] MEDS: LATANOPROST 0.005% OP SOLN 2.5 ML BTL OP SCH (21:11)
[2016-07-09] MEDS: SODIUM CHLORIDE 0.9% 1000ML 1,000 ML IV SCH ×2 (00:02→07:33)
[2016-07-09 06:04] VITALS: BP 164/70; PULSE 46
[2016-07-09] MEDS: ACETAMINOPHEN 500 MG TAB PO SCH ×2 (06:12→12:40)
[2016-07-09] MEDS: OXYCODONE HCL IR 5 MG TAB (IMMEDIATE RELEASE) PO PRN ×2 (06:13→12:40)
[2016-07-09 06:15] VITALS: BP 169/75; PULSE 55; TEMP 36.8; O2SAT 99
[2016-07-09 06:47] LABS: MEAN CELL VOLUME 91.2 fL (80-100); MEAN CORPUSCULAR HEMOGLOBIN 30.4 pg (25-34); MEAN CORPUSCULAR HGB CONC 33.3 g/dl (32-36); MEAN PLATELET VOLUME 10.7 fL (7.4-10.4); PLATELET COUNT 151 K/uL (130-400); RED BLOOD COUNT 3.62 M/uL (4.7-6.1); WHITE BLOOD COUNT 9.38 K/uL (4.8-10.8)
[2016-07-09 07:24] LABS: BUN/CREATININE RATIO 14.6 (10-20); CALCIUM 9.3 mg/dl (8.5-10.1); CREATININE 1.3 mg/dl (0.60-1.40); POTASSIUM 4.6 mmol/L (3.5-5.1)
[2016-07-09] MEDS: MULTIVITAMIN TAB PO SCH (07:25)
[2016-07-09] MEDS: DONEPEZIL HCL 5 MG TAB PO SCH (07:26)
[2016-07-09] MEDS: GABAPENTIN 300 MG CAP PO SCH (07:26)
[2016-07-09] MEDS: PANTOprazole SOD 40 MG TAB PO SCH (07:26)
[2016-07-09] MEDS: AMLODIPINE BESYLATE 5 MG TAB PO SCH (07:26)
[2016-07-09] MEDS: INSULIN ASPART 100 UNITS/ML 3 ML PEN SC SCH ×2 (07:28→12:46)
--- NOTE | 2016-07-09 07:29 | Hospitalist Progress Note ---
Hospitalist Progress Note Date of Service Jul 09, 2016. Subjective Pt evaluation today including: conversation w/ patient, physical exam, chart review, lab review, review of inpatient medication list Voiding: no voiding problems, no incontinence Patient states he is feeling well. He is eating and drinking OK. Pain is well controlled. +passing gas postop, no BM. Patient denies any fever, chills, sweats , lightheadedness, dizziness, vision changes, CP, palpitations, edema, SOB, wheezing, cough, abdominal pain, nausea, vomiting, diarrhea, urinary symptoms, melena, numbness/tingling, weakness, anxiety/depression, active bleeding, or new skin discoloration/changes. Medications Current Inpatient Medications Medications (Trade) Dose Ordered Sig/Patricio Route Start Time Stop Time Status Last Admin Dose Admin Amlodipine Besylate (Norvasc Tab) 10 mg QAM PO 07/08/16 09:00 08/07/16 08:59 07/09/16 07:26 10 MG Donepezil HCl (Aricept Tab) 5 mg QAM PO 07/08/16 09:00 08/07/16 08:59 07/09/16 07:26 5 MG Gabapentin (Neurontin Cap) 300 mg BID PO 07/07/16 21:00 08/06/16 20:59 07/09/16 07:26 300 MG Gabapentin (Neurontin Cap) 400 mg HS PO 07/07/16 21:00 08/06/16 20:59 07/08/16 21:10 400 MG Simvastatin (Zocor Tab) 10 mg HS PO 07/07/16 21:00 08/06/16 20:59 07/08/16 21:10 10 MG Diphenhydramine HCl (Benadryl Cap) 25 mg Q8 PRN PO 07/07/16 10:30 08/06/16 10:29 Zolpidem Tartrate (Ambien Tab) 5 mg HSZ PRN PO 07/07/16 10:30 08/06/16 10:29 Ondansetron HCl (Zofran Inj) 4 mg Q6H PRN IV 07/07/16 10:30 08/06/16 10:29 Pantoprazole Sodium (Protonix Tab) 40 mg QAM PO 07/08/16 09:00 08/07/16 08:59 07/09/16 07:26 40 MG Oxycodone HCl (Roxicodone Immediate Rel Tab) `1-2 TABS FOR PAIN `1 TAB... Q4H PRN PO 07/07/16 10:30 07/21/16 10:29 07/09/16 06:13 10 MG Oxycodone HCl (Oxycontin Tab) 10 mg Q12 PO 07/07/16 21:00 07/21/16 20:59 07/09/16 07:33 10 MG Acetaminophen (Tylenol Tab) 1,000 mg Q8 PO 07/07/16 14:00 08/06/16 13:59 07/09/16 06:12 1,000 MG Naloxone HCl (Narcan Inj) 0.1 mg Q2M PRN IV 07/07/16 10:30 08/06/16 10:29 Magnesium Hydroxide (Milk Of Magnesia Susp) 30 ml Q6H PRN PO 07/07/16 10:30 08/06/16 10:29 Bisacodyl (Dulcolax Supp) 10 mg DAILY PRN ND 07/07/16 10:30 08/06/16 10:29 Sodium Biphosphate/ Sodium Phosphate (Fleet Enema) 132 ml DAILY PRN ND 07/07/16 10:30 08/06/16 10:29 Multivitamins (Multivitamin Tab) 1 tab DAILY PO 07/08/16 09:00 08/07/16 08:59 07/09/16 07:25 1 TAB Insulin Aspart (novoLOG ASPART) SLIDING SCALE G... ACHS SC 07/07/16 17:15 08/06/16 17:14 07/09/16 07:28 9 UNITS Morphine Sulfate (MoRPHine SULFATE INJ) 2 mg Q2H PRN IV 07/07/16 12:45 07/21/16 12:44 Morphine Sulfate (MoRPHine SULFATE INJ) 4 mg Q2H PRN IV 07/07/16 12:45 07/21/16 12:44 Glucose (Glucose 40% Gel) 15-30 GRAMS 15 GRAMS... UD PRN PO 07/07/16 12:45 08/06/16 12:44 Glucose (Glucose Chew Tab) 4-8 Tablets 4 Tabl... UD PRN PO 07/07/16 12:45 08/06/16 12:44 Dextrose (Dextrose 50% 50ML Syringe) 25-50ML OF 50% DW IV FOR... UD PRN IV 07/07/16 12:45 08/06/16 12:44 Glucagon (Glucagon Inj) 1 mg UD PRN SQ 07/07/16 12:45 08/06/16 12:44 Hydralazine HCl (HydrALAZINE INJ) 10 mg Q6 PRN IV. 07/07/16 12:45 08/06/16 12:44 Latanoprost (Xalatan Oph Soln) 1 drops HS OP 07/07/16 21:00 08/06/16 20:59 07/08/16 21:11 1 DROPS Objective Vital Signs Date Time Temp Pulse Resp B/P Pulse Ox O2 Delivery O2 Flow Rate FiO2 07/09/16 06:15 36.8 55 18 169/75 99 Room Air 07/09/16 06:04 46 164/70 07/08/16 23:50 Room Air 07/08/16 23:13 36.7 45 17 130/63 94 Room Air 07/08/16 16:15 36.7 42 16 127/61 100 Room Air 07/08/16 15:45 Room Air 3.0 07/08/16 11:10 36.4 45 16 157/68 100 Room Air 07/08/16 10:00 62 07/08/16 08:37 45 148/65 07/08/16 07:30 36.9 50 16 183/50 98 Room Air Physical Exam General Appearance: WD/WN, no apparent distress, + pertinent finding (right shoulder brace on ) Eyes: normal inspection, PERRL ENT: hearing grossly normal Neck: supple Respiratory/Chest: lungs clear, no respiratory distress, no accessory muscle use Cardiovascular: regular rate, rhythm, no edema Abdomen: normal bowel sounds, non tender, soft Extremities: no pedal edema, no calf tenderness Neurologic/Psychiatric: alert, normal mood/affect, oriented x 3 Skin: normal color, warm/dry, no rash Laboratory Results Last 24 Hours Test 07/08/16 12:12 07/08/16 16:49 07/08/16 20:36 07/09/16 06:18 Bedside Glucose 276 mg/dl 187 mg/dl 171 mg/dl 183 mg/dl Test 07/09/16 06:20 07/09/16 06:26 Sodium Level 141 mmol/L Potassium Level 4.6 mmol/L Chloride Level 108 mmol/L Carbon Dioxide Level 23 mmol/L Anion Gap 10.0 mmol/L Blood Urea Nitrogen 19 mg/dl Creatinine 1.30 mg/dl Est Creatinine Clear Calc Drug Dose 47.6 ml/min Estimated GFR () 60.1 Estimated GFR (Non- 51.9 BUN/Creatinine Ratio 14.6 Random Glucose 183 mg/dl Calcium Level 9.3 mg/dl White Blood Count 9.38 K/uL Red Blood Count 3.62 M/uL Hemoglobin 11.0 g/dL Hematocrit 33.0 % Mean Corpuscular Volume 91.2 fL Mean Corpuscular Hemoglobin 30.4 pg Mean Corpuscular Hemoglobin Concent 33.3 g/dl RDW Standard Deviation 45.7 fL RDW Coefficient of Variation 13.7 % Platelet Count 151 K/uL Mean Platelet Volume 10.7 fL Assessment and Plan 81 y/o male, with PMHx of HTN, hypercholesterolemia, bradycardia, and DM, s/p total right shoulder arthroplasty by Dr. Wallace on 07/07. - DVT prophylaxis, pain management, and PT/OT as per primary team - Follow CBC and BMP -- Leukocytosis, likely secondary to postop response/Decedron pretreatment preop. Continue to monitor, follow for s/s of infection. (07/08_ -- Resolved on 07/09 -- Hyponatremia/acute kidney injury- treat with IV NSS @ 125 ml/hr. BUN/Cr= 25/1.60. Baseline Cr. ~1.2. Continue to follow. -- Resolved on 07/09. BUN/Cr= 19/1.3. HTN: - Hold Lisinopril 20 mg PO BID and HCTZ 25 mg PO QAM- resume at discharge - Continue Amlodipine 10 mg PO daily - Add Hydralazine 10 mg IV PRN for SBP >170 or DBP >100 DM: - Hold Metformin, Januvia, and Glimepiride - BSG ACHS with sliding insulin scale - No orders for IV steroids, monitor need for Lantus coverage Neuropathy: - Continue Gabapentin Hypercholesterolemia: - Continue Zocor 10 mg PO daily Mild cognitive disorder: - Continue Aricept DVT prophylaxis: - As per primary team Code Status: - LEVEL I, FULL Dispo: - Discharge as per primary team. Discharge recommendations, follow-up with PCP on 07/12 for BMP to f/u kidney function. Thank you for this consultation. We will continue to follow throughout hospital stay.
[2016-07-09] MEDS: OXYCODONE HCL 10 MG TABCR (OXYCONTIN) PO SCH (07:33)
[2016-07-09 08:00] VITALS: BP 142/58; PULSE 46; TEMP 36.3; O2SAT 98
--- NOTE | 2016-07-09 09:08 | Orthopedic Progress Note ---
Orthopedic Progress Note Date of Service Jul 09, 2016. Subjective Post OP Day: 2 Reports: feeling well, pain controlled w PO medications, Denies: SOB, calf pain , chest pain, complaints, light headedness, nausea / vomiting Additional Notes: Per medicine, patient to HOLD HCTZ until f/u with PCP as an outpatient. Medicine also wants him to get CBC/ PRP Tuesday07/12/16 and follow w PCP for kidney function and BP. Objective Date Time Temp Pulse Resp B/P Pulse Ox O2 Delivery O2 Flow Rate FiO2 07/09/16 08:00 36.3 46 17 142/58 98 Room Air 07/09/16 07:30 Room Air 07/09/16 06:15 36.8 55 18 169/75 99 Room Air 07/09/16 06:04 46 164/70 07/08/16 23:50 Room Air 07/08/16 23:13 36.7 45 17 130/63 94 Room Air 07/08/16 16:15 36.7 42 16 127/61 100 Room Air 07/08/16 15:45 Room Air 3.0 07/08/16 11:10 36.4 45 16 157/68 100 Room Air 07/08/16 10:00 62 Laboratory Results 24 Hours: Test 07/09/16 06:26 Hematocrit 33.0 % Hemoglobin 11.0 g/dL Assessment & Plan Assessment: POD #2, Right shoulder TSA, biceps tenodesis. Plan: PT/ OT D/C planning- Home w OPPT today As per medicine. Follow with lab work as ordered this Tuesday and with PCP for BP and kidney monitoring. Inhouse Planning Pain Management: Oxycontin, Morphine, PO Tylenol, Oxy IR DVT Prophylaxis: TEDs, SCDs Discharge Planning Discharge Planning: home with oppt Pain Management: Oxycontin, Morphine, PO Tylenol, Oxy IR DVT Prophylaxis: TEDs, SCDs Therapy: Physical Therapy, Occupational Therapy
[2016-07-09] MEDS ORDERED: RXC5 PO (09:11)
[2016-07-09] MEDS ORDERED: OXYSR10 PO (09:11)
[2016-07-09] MEDS ORDERED: ACET-1138 PO (09:11)
--- NOTE | 2016-07-09 09:22 | Discharge Instructions ---
Discharge Instructions Admission Reason for Admission: Right Shoulder Degenerative Joint Disease Discharge Discharge Diagnosis / Problem: Right TSA, biceps tenodesis. Discharge Goals Goal(s): Improve function Activity Recommendations Activity Limitations: as noted below . Instructions / Follow-Up Instructions / Follow-Up ACTIVITY RECOMMENDATIONS: SELF CARE INSTRUCTIONS AFTER TOTAL SHOULDER ARTHROPLASTY A. You may do daily exercises as taught in physical therapy while in hospital. No lifting with the operative arm. Please schedule your outpatient physical therapy appointment to begin within 2-3 days after leaving the hospital. Specific restrictions will be written on your physical therapy prescription that is provided to you. B. You are to wear your sling/immobilizer at all times EXCEPT when performing your daily exercises, participating in physical therapy and for hygiene purposes. C. You may perform dry, daily dressing changes. Please keep your incision covered. You may shower 48 hours after surgery. Do not apply soap or any ointment/ lotions directly over incision. Do not soak incision in bath tub/swimming pool. D. You may use ice as needed to operative shoulder. SPECIAL CARE INSTRUCTIONS: MEDICATION INSTRUCTIONS: *It is recommended you take Aspirin 325mg daily for four weeks post-op. VERY IMPORTANT TO READ AND REVIEW A. There are a few signs you need to watch for after you are home. Call [facility] at [phone] if you experience any of the followin. Increased severe shoulder pain. Some pain is expected especially when you exercise. 2. Increased swelling in you shoulder or arm; pain or swelling in either upper extremity. 3. Any fluid drainage from the incision. 4. Shortness of breath or chest pain. B. Please call [facility] at [phone] if you have any questions or concerns about your operation or recovery. C. Call your physician if: 1. Temperature is greater than 101 degrees (F). 2. Pain is not relieved by prescribed pain medications. 3. Increase drainage or redness from incision. 4. Unanswered questions or concerns. FOLLOW UP VISIT: Please call [facility] at [phone] to schedule a follow up appointment with Dr. Wallace or his PA in 12-14 days from your surgery date. PER MEDICINE: PATIENT TO HOLD HCTZ AT HOME AND FOLLOW WITH PCP NEXT WEEK WITH LAB WORK. PRESCRIPTIONS FOR LAB WORK PROVIDED AND TO BE SENT TO DR. ORTEZ. MAKE APPT OR AT LEAST CALL DR. ORTEZ'S OFFICE NEXT WEEK TO REVIEW LABS AND DISCUSS BP MEDS AND KIDNEY RESULTS. Current Hospital Diet Patient's current hospital diet: Diabetes Type 2 Diet Discharge Diet Recommended Diet: Diabetes Type 2 Diet Procedures Procedures Performed: Right Total Shoulder Arthroplasty, Cemented; Biceps Tendonesis Pending Studies Studies pending at discharge: no Laboratory Results Hemoglobin A1c Test 06/15/16 13:56 Range/Units Estimated Average Glucose 194 mg/dl Hemoglobin A1c 8.4 H 4.5-5.6 % Lipid Panel Test 04/27/16 07:03 Range/Units Triglycerides Level 149 0-150 mg/dl Cholesterol Level 106 0-200 mg/dl HDL Cholesterol 47 mg/dl Cholesterol/HDL Ratio 2.3 LDL Cholesterol, Calculated 29 mg/dl Medical Emergencies . Who to Call and When: Medical Emergencies: If at any time you feel your situation is an emergency, please call 911 immediately. . Non-Emergent Contact Non-Emergency issues call your: Primary Care Provider . "Provider Documentation" section prepared by Luis Asif. VTE Core Measure Inpt VTE Proph given/why not?: yKleigh Elias, SCD's
[2016-07-09 09:38] VITALS: BP 142/58; PULSE 46; TEMP 36.3; O2SAT 98
[2016-07-09 10:54] VITALS: O2SAT 98
[2016-07-09 11:44] VITALS: BP 127/62; PULSE 44; TEMP 36.4; O2SAT 95
--- NOTE | 2016-07-18 16:39 | DISCHARGE SUMMARY ---
HISTORY OF PRESENT ILLNESS: This is a 81-year-old male patient of Dr. Wallace complaining of chronic right shoulder pain, longstanding, progressively getting worse. The patient was diagnosed with end-stage osteoarthritis and wished to proceed with a right total shoulder arthroplasty. PAST MEDICAL HISTORY: Hypertension, hypercholesterolemia, normal sinus bradycardia, carpal tunnel syndrome, diabetes mellitus, rheumatoid arthritis, spine problems, and sciatica. POSTOPERATIVE COURSE: The patient underwent a right total shoulder arthroplasty, biceps tenodesis and rotator cuff debridement on 07/07/2016. He was followed closely with pain control, medical consultation, physical therapy. He did very well. Actually, he did have a postoperative acute kidney injury, but his BUN and creatinine did resolve on discharge to baseline. Otherwise, an uneventful postoperative course. PHYSICAL EXAMINATION: On discharge, right shoulder incision was clean, dry and intact. Nicole were intact. Skin edges were approximated well. There was no redness or drainage. Neurologically and neurovascularly, he is intact in his right upper extremity. DIAGNOSES: Right total shoulder arthroplasty, biceps tenodesis, rotator cuff repair. He also has a history of hypertension, hypercholesterolemia, normal sinus bradycardia, carpal tunnel syndrome, diabetes mellitus, rheumatoid arthritis, spine problems and sciatica. PLAN: The patient was discharged home on postoperative day #2. He will attend outpatient physical therapy, continue his pain medications and his preadmission medications. He will follow up as an outpatient as scheduled with Dr. Wallace.
== END 2016-07-09 14:30 | disposition home or self-care (01) | DRG 483 ==
LOC: ENRESERVTM → ENRESERVDT → CANRESERV → C.ACU 05:16 → C.3E 10:26
PROVIDERS: ADMIT Orthopaedic Surgery Sports Medicine; ATTEND Orthopaedic Surgery Sports Medicine
PROC: 0RRJ0JZ Replacement of Right Shoulder Joint with Synthetic Substitute, Open Approach (ICD-10-PCS; principal; 2016-07-07 07:30)
PROC: 0LS10ZZ Reposition Right Shoulder Tendon, Open Approach (ICD-10-PCS; principal; 2016-07-07 07:30)
DX: M19.011 Primary osteoarthritis, right shoulder (principal); N17.9 Acute kidney failure, unspecified; M75.21 Bicipital tendinitis, right shoulder; I12.9 Hypertensive chronic kidney disease with stage 1 through stage 4 chronic kidney disease, or unspecified chronic kidney disease; E11.40 Type 2 diabetes mellitus with diabetic neuropathy, unspecified; E11.22 Type 2 diabetes mellitus with diabetic chronic kidney disease; N18.3 Chronic kidney disease, stage 3 (moderate); E78.00 Pure hypercholesterolemia, unspecified; I49.5 Sick sinus syndrome; F09 Unspecified mental disorder due to known physiological condition; Z79.1 Long term (current) use of non-steroidal anti-inflammatories (NSAID); Z79.84 Long term (current) use of oral hypoglycemic drugs; Z79.899 Other long term (current) drug therapy; Z82.49 Family history of ischemic heart disease and other diseases of the circulatory system

== ENCOUNTER → 2016-07-15 | Outpatient (CLI) | payer OTHER, BC ==
[~2016-07-15] MED LIST changes: +ACET-1138 PO; -ACET325T96 PO; -EYED OPB; -HYDR25TA4 PO; +LATA0.5S OP; +OXYSR10 PO; +RXC5 PO
[2016-07-15 18:18] LABS: URINE APPEARANCE CLEAR (CLEAR); URINE BILIRUBIN NEG (NEG); URINE COLOR YELLOW; URINE NITRITE NEG (NEG); URINE SPECIFIC GRAVITY 1.029 (1.000-1.030); UROBILINOGEN NEG (NEG)
[2016-07-15 18:31] LABS: MANUAL MICROSCOPIC REQUIRED? NO; REVIEW REQ? NO
== END | disposition home or self-care (01) ==
LOC: C.LABMFLN 07:31
PROVIDERS: ATTEND Family Medicine
DX: R35.0 Frequency of micturition (principal)

== ENCOUNTER → 2016-08-19 | Outpatient (CLI) | payer OTHER, BC ==
[2016-08-19 14:07] LABS: BLOOD UREA NITROGEN 28 mg/dl (7-18); BUN/CREATININE RATIO 21.2 (10-20); CALCIUM 10.3 mg/dl (8.5-10.1); CARBON DIOXIDE 26 mmol/L (21-32); CHLORIDE 104 mmol/L (98-107); GLUCOSE 91 mg/dl (70-99); SODIUM 139 mmol/L (136-145)
== END | disposition home or self-care (01) ==
LOC: C.LABMFLN 10:50
PROVIDERS: ATTEND Family Medicine
DX: E11.9 Type 2 diabetes mellitus without complications (principal)

== ENCOUNTER → 2016-09-13 | Outpatient (CLI) | payer OTHER, BC ==
[2016-09-13 13:28] LABS: BASO % 0.7 %; BASO ABS # 0.04 K/uL (0-0.2); COMPLETE YES; EOS % 3.4 %; HEMATOCRIT 39.4 % (42-52); IG% 0.2 %; LYMPH % 33.8 %; LYMPH ABS # 2.08 K/uL (1.2-3.4); MEAN CELL VOLUME 90.4 fL (80-100); MEAN CORPUSCULAR HEMOGLOBIN 30.3 pg (25-34); MEAN CORPUSCULAR HGB CONC 33.5 g/dl (32-36); MEAN PLATELET VOLUME 10.6 fL (7.4-10.4); NEUT % 49.9 %; PLATELET COUNT 181 K/uL (130-400); RED BLOOD COUNT 4.36 M/uL (4.7-6.1); WHITE BLOOD COUNT 6.15 K/uL (4.8-10.8)
[2016-09-13 14:29] LABS: ESTIMATED AVERAGE GLUCOSE 169 mg/dl; HA1C FLAG Normal (Normal)
[2016-09-13 14:43] LABS: ALT/SGPT 21 U/L (12-78); BLOOD UREA NITROGEN 34 mg/dl (7-18); BUN/CREATININE RATIO 24.1 (10-20); CALCIUM 10.2 mg/dl (8.5-10.1); CARBON DIOXIDE 26 mmol/L (21-32); CHLORIDE 107 mmol/L (98-107); CHOLESTEROL 110 mg/dl (0-200); GLUCOSE 149 mg/dl (70-99); POTASSIUM 4.4 mmol/L (3.5-5.1); SODIUM 140 mmol/L (136-145); TRIGLYCERIDES 74 mg/dl (0-150); VERY LOW DENSITY LIPOPROT CALC 15 mg/dl
[2016-09-13 15:11] LABS: ALB/GLOB RATIO 1.2 (0.9-2); ALKALINE PHOSPHATASE 72 U/L (45-117); AST/SGOT 10 U/L (15-37); CHOLESTEROL/HDL RATIO 2.3; HDL CHOLESTEROL 48 mg/dl; LDL CHOLESTEROL CALCULATED 47 mg/dl
== END | disposition home or self-care (01) ==
LOC: C.LABMFLN 08:45
PROVIDERS: ATTEND Family Medicine
DX: E78.5 Hyperlipidemia, unspecified (principal); I10 Essential (primary) hypertension; E11.9 Type 2 diabetes mellitus without complications; D64.9 Anemia, unspecified

== ENCOUNTER → 2017-01-17 | Outpatient (CLI) | payer OTHER, BC ==
[2017-01-17 13:53] LABS: ESTIMATED AVERAGE GLUCOSE 183 mg/dl; HA1C FLAG Normal (Normal)
[2017-01-17 14:02] LABS: ALT/SGPT 22 U/L (12-78); BLOOD UREA NITROGEN 21 mg/dl (7-18); BUN/CREATININE RATIO 14.8 (10-20); CALCIUM 10.1 mg/dl (8.5-10.1); CARBON DIOXIDE 29 mmol/L (21-32); CHLORIDE 105 mmol/L (98-107); CHOLESTEROL 100 mg/dl (0-200); GLUCOSE 139 mg/dl (70-99); POTASSIUM 3.9 mmol/L (3.5-5.1); SODIUM 138 mmol/L (136-145); TRIGLYCERIDES 128 mg/dl (0-150); VERY LOW DENSITY LIPOPROT CALC 26 mg/dl
[2017-01-17 14:06] LABS: ALB/GLOB RATIO 0.9 (0.9-2); ALKALINE PHOSPHATASE 78 U/L (45-117); AST/SGOT 13 U/L (15-37); CHOLESTEROL/HDL RATIO 2.3; HDL CHOLESTEROL 44 mg/dl; LDL CHOLESTEROL CALCULATED 30 mg/dl
== END | disposition home or self-care (01) ==
LOC: C.LABMFLN 07:05
PROVIDERS: ATTEND Family Medicine
DX: E78.5 Hyperlipidemia, unspecified (principal); I10 Essential (primary) hypertension; E11.9 Type 2 diabetes mellitus without complications

== ENCOUNTER → 2017-06-08 | Outpatient (CLI) | payer OTHER, BC ==
[~2017-06-08] MED LIST changes: -AMLO-114 PO; +AMLO10TA3 PO; -DONE1TAB11 PO; +DONE5TAB26 PO; +GABA-1220 PO; -GABA1CAP5 PO
--- NOTE | 2017-06-08 12:54 | DIAGNOSTIC IMAGING REPORT ---
LEFT ANKLE 3 VIEWS; LEFT TIBIA AND FIBULA 2 VIEWS CLINICAL HISTORY: Left ankle pain. FINDINGS: AP and lateral views of the left tibia and fibula with AP, lateral, and oblique views of the left ankle are obtained. No prior studies are available for comparison at the time of dictation. The skeletal structures are osteopenic. There is a tiny avulsion fracture seen along the inferior aspect of the lateral malleolus. The tibia and fibula are otherwise intact. Ankle mortise is maintained. The knee joint is grossly preserved. There is a large plantar calcaneal enthesophyte. An ankle joint effusion is noted, and soft tissue swelling is present around the ankle. Atherosclerotic calcification is seen in the regional arteries. IMPRESSION: 1. There is a tiny avulsion fracture along the inferior aspect of the lateral malleolus. 2. No additional tibial or fibular fracture is seen. 3. There is an ankle joint effusion with overlying soft tissue edema. Electronically signed by: Abel Hairston M.D. 06/08/2017 12:53 PM Dictated Date/Time: 06/08/2017 12:46 PM
== END | disposition home or self-care (01) ==
LOC: C.RAD 11:53
PROVIDERS: ATTEND Family Medicine
DX: S82.65XA Nondisplaced fracture of lateral malleolus of left fibula, initial encounter for closed fracture (principal); X58.XXXA Exposure to other specified factors, initial encounter; M25.562 Pain in left knee

== ENCOUNTER → 2017-07-04 | Outpatient (CLI) | payer OTHER, BC ==
[~2017-07-04] MED LIST changes: +AMLO-114 PO; -AMLO10TA3 PO; +DONE1TAB11 PO; -DONE5TAB26 PO; -GABA-1220 PO; +GABA1CAP5 PO
[2017-07-04 13:39] LABS: HEMOGLOBIN A1C 8.2 % (4.5-5.6)
[2017-07-04 14:06] LABS: ALBUMIN 3.6 gm/dl (3.4-5.0); ALT/SGPT 24 U/L (12-78); AST/SGOT 10 U/L (15-37); BLOOD UREA NITROGEN 24 mg/dl (7-18); CALCIUM 9.7 mg/dl (8.5-10.1); CARBON DIOXIDE 25 mmol/L (21-32); GLUCOSE 139 mg/dl (70-99); POTASSIUM 4.1 mmol/L (3.5-5.1); SODIUM 138 mmol/L (136-145)
[2017-07-04 14:08] LABS: ALKALINE PHOSPHATASE 67 U/L (45-117); CHOLESTEROL 95 mg/dl (0-200); LDL CHOLESTEROL CALCULATED 21 mg/dl; TOTAL PROTEIN 7.2 gm/dl (6.4-8.2)
== END | disposition home or self-care (01) ==
LOC: C.LABMFLN 07:13
PROVIDERS: ATTEND Family Medicine
DX: E78.5 Hyperlipidemia, unspecified (principal); I10 Essential (primary) hypertension; E11.9 Type 2 diabetes mellitus without complications